=== PATIENT | male | born 2000 | race Caucasian/White ===

== ENCOUNTER 2024-02-13 07:21 | Emergency (ER) | payer OTHER ==
[~2024-02-13] VITALS: Ht 182.9 cm; Wt 96.1 kg
[2024-02-13] MEDS: NS (Normal Saline) 0.9% 1,000 ML IV ONE (07:45)
[2024-02-13 08:04] LABS: BASO % 0.5 % (0.0-1.0); EOS # 0.2 10^3/uL (0.0-0.5); EOS % 2.4 % (0.0-3.0); HEMATOCRIT 44.8 % (42.0-52.0); HEMOGLOBIN 14.6 g/dl (13.5-17.5); LYMPH # 3.3 10^3/uL (1.5-5.0); LYMPH % 51.1 % (24.0-44.0); MEAN CORPUSCULAR HEMOGLOBIN 31.1 pg (27.0-33.0); MEAN CORPUSCULAR HGB CONC 32.6 g/dl (32.0-36.5); MEAN CORPUSCULAR VOLUME 95.5 fl (80.0-96.0); MONO # 0.7 10^3/uL (0.0-0.8); MONO % 10.5 % (2.0-8.0); NEUTROPHILS # 2.3 10^3/uL (1.5-8.5); NEUTROPHILS % 35.2 % (36.0-66.0); PLATELET COUNT, AUTOMATED 254 10^3/uL (150-450); RED BLOOD COUNT 4.69 10^6/uL (4.30-6.10); WHITE BLOOD COUNT 6.4 10^3/uL (4.0-10.0)
[2024-02-13 08:13] LABS: KETONE, URINE AUTO RFX NEGATIVE (NEGATIVE); LEUKOCYTE ESTERASE UR AUTO RFX NEGATIVE (NEGATIVE)
[2024-02-13] MEDS: GASTROGRAFIN SOLUTION 30ML PO SCH (08:25)
[2024-02-13 08:26] LABS: LIPASE 49 U/L (12-53)
[2024-02-13 08:27] LABS: AMYLASE 78 U/L (30-118)
[2024-02-13 08:28] LABS: ALKALINE PHOSPHATASE 48 U/L (40-129); ALT/SGPT 61 U/L (7.0-40); AST/SGOT 34 U/L (<34); BILIRUBIN,DIRECT < 0.1 MG/DL (<0.4); BILIRUBIN,TOTAL 0.4 MG/DL (0.3-1.2); TOTAL PROTEIN 7.6 G/DL (5.7-8.2)
[2024-02-13] MEDS ORDERED: ISOVUE-370 76% 100ML VIAL As Ordered ONE (09:56)
[2024-02-13] MEDS ORDERED: OMEP40CA4 PO (12:06)
[2024-02-13 12:14] VITALS: BP 133/85; TEMP 97.5; O2SAT 99
== END 2024-02-13 12:18 | disposition home or self-care (01) ==
LOC: M ED 07:21
DX: R10.9 Unspecified abdominal pain (principal)
CPT/HCPCS: 36415; 74177; 80047; 80076; 81001; 82150; 83605; 83690; 85025; 99284; Q9963; Q9967